=== PATIENT | female | born 1945 | race Caucasian/White ===

== ENCOUNTER → 2021-03-16 11:42 | Outpatient (CLI) | payer MEDICARE, BC, SELFPAY ==
--- NOTE | ~2021-03-16 | XR_ITS ---
XR chest 2V DATE: 03/16/2021 12:48 INDICATION: Chest pain TECHNIQUE: 2 views COMPARISON: 11/23/2016 PA chest FINDINGS: Heart size is within normal range. There is aortic ectasia and tortuosity. No hilar or medi astinal enlargement is evident. There is chronic mild elevation of the right leaf of the diaphragm. No pulmonary infiltrate or consol idation, pleural effusion or pulmonary vascular congestion or pneumothorax is detected. There is degenerative spurring of the thoracic spine. Diffuse osteopenia. Left glenohumeral joint replacement. IMPRESSION: No active disease or significant change since 12/01/2016 Interval left glenohumeral joint replacement since 12/01/2016 Reviewed, dictated and finalized at location B.
== END ==
PROVIDERS: PCP Family Medicine; Visit Provider Family Medicine
DX: R07.89 Other chest pain (principal)
CPT/HCPCS: 71046

== ENCOUNTER 2021-05-13 14:48 | Outpatient (CLI) | payer MEDICARE, BC, SELFPAY ==
--- NOTE | ~2021-05-13 | CT_ITS ---
EXAMINATION: CT abdomen pelvis w con INDICATION: Right lower quadrant pain TECHNIQUE: Computed tomographic images of the abdomen and pelvis were obtained after the administrati on of 100 cc of Omnipaque 350 intravenous contrast. The dose-length product (DLP) was 1398.66 mGy-cm. Automated exposure control and iterative reconstruction technique were employed. COMPARISON: 06/05/2007 FINDINGS: Minimal dependent atelectasis is present in the lung bases. The heart size is normal. The g allbladder is surgically absent. There is moderate enlargement of the common bile duct and central in trahepatic ducts which is likely due to post cholecystectomy state. There is an approximately 3.7 x 2 .1 cm area of subcapsular enhancement in liver segment II which has increased in size since the mary rison examination. This is associated with mildly dilated left hepatic and portal veins, likely refle cting a venous malformation. Punctate calcifications in an otherwise normal spleen likely represent h ealed granulomatous disease. The pancreas and adrenal glands are normal. Cysts of the kidneys measure up to 3.7 cm on the left. Small nonobstructing stones of the left kidney measure up to 3 mm. Small n onobstructing stones of the right kidney measure up to 2 mm. No stones are present in the ureters or bladder. There is calcified atherosclerosis of the aorta and many of the other arteries. No pathologi fanny enlarged abdominal or pelvic lymph nodes are identified. There is no free intraperitoneal gas o r evidence of bowel obstruction. The appendix is normal. Colonic diverticulosis is present without ev idence of diverticulitis. There is severe lumbar spondylosis. IMPRESSION: 1. No CT correlate for the patient's symptoms. 2. Left hepatic lobe lesion with imaging findings consistent with a venous malformation. Finding coul d be theoretically result in liver shunt physiology. 3. Bilateral nonobstructing nephrolithiasis. Reviewed, dictated and finalized at location A. HOUSE KEEPER IMPRESSION: 1. No CT correlate for the patient's symptoms. 2. Left hepatic lobe lesion with imaging findings consistent with a venous malf ormation. Finding could be theoretically result in liver shunt physiology. 3. Bilateral nonobstructing nephrolithiasis.
--- NOTE | ~2021-05-13 | XR_ITS ---
EXAMINATION: XR hip RT 2V w AP pelvis EXAM DATE: 05/13/2021 15:33 INDICATION: Pain throughout right hip, low back, symptoms 13 days. TECHNIQUE: Right hip frontal, 'frog leg' projections for interpretation. Frontal projection pelvis. There is no prior study for comparison. FINDINGS: There is moderate symmetric bilateral hip primary osteoarthritis. No evidence of avascular necrosis. There are no acute fractures or dislocations identified. There is no subcutaneous gas. Th e soft tissue is unremarkable. There are no radiopaque foreign bodies. Moderate L4-5 disc disease. IMPRESSION: Moderate bilateral hip osteoarthritis. Reviewed, dictated and finalized at location A. [employer]
[2021-05-13 15:44] LABS: Estimated Glomerular Filt Rate 44
[2021-05-13 17:04] LABS: Basophils Absolute Auto 0.1 K/mm3 (0.0-0.1); Basophils Percent Auto 1.1 % (0.2-1.2); Eosinophils Absolute Auto 0.3 K/mm3 (0-0.3); Eosinophils Percent Auto 3.9 % (0-4.4); Hematocrit 41.3 % (37.0-47.0); Immature Granulocyte Absolute 0.01 K/mm3 (0.00-0.031); Immature Granulocyte Percent A 0.1 % (0-0.5); Lymphocytes Absolute Auto 2.38 K/mm3 (0.9-3.2); Lymphocytes Percent Auto 29.7 % (18.3-44.2); Mean Corpuscular HGB Conc 33.9 g/dl (32-36); Mean Corpuscular Hemoglobin 32.6 pg (26-34); Mean Corpuscular Volume 96.3 fl (80-100); Mean Platelet Volume 10.3 fl (7.4-10.4); Monocytes Absolute Auto 0.7 K/mm3 (0.1-0.6); Neutrophils Absolute Auto 4.5 K/mm3 (1.3-6.7); Neutrophils Percent Auto 56.2 % (45.5-73.1); Platelet Count Result 247 k/mm3 (150-375); Red Blood Count 4.29 M/mm3 (4.2-5.4); Red Cell Distribution Width 13.1 % (11.5-14.5)
[2021-05-13 17:14] LABS: Alanine Aminotransferase 23 U/L (4-35); Albumin Level 4.2 g/dL (3.5-5.1); Alkaline Phosphatase 84 U/L (38-126); Anion Gap 12 mmol/L (8-16); Aspartate Amino Transferase 34 U/L (14-36); Bilirubin,Total 0.6 mg/dL (0.2-1.3); Blood Urea Nitrogen 25 mg/dL (7-17); Calcium 9.5 mg/dL (8.4-10.2); Carbon Dioxide 26 mmol/L (22-30); Chloride 93 mmol/L (98-107); Estimated Glomerular Filt Rate 48; Glucose 89 mg/dL (65-110); Potassium 3.5 mmol/L (3.4-5.0); Sodium 131 mmol/L (137-145)
== END 2021-05-13 14:49 | disposition home or self-care (01) ==
PROVIDERS: PCP Family Medicine; Visit Provider Physician Assistant Medical
DX: R10.31 Right lower quadrant pain (principal); N20.0 Calculus of kidney; I70.0 Atherosclerosis of aorta; M47.816 Spondylosis without myelopathy or radiculopathy, lumbar region; M16.11 Unilateral primary osteoarthritis, right hip
CPT/HCPCS: 73502; 74177; 80053; 85025; Q9967

== ENCOUNTER → 2021-08-31 15:30 | Outpatient (CLI) | payer MEDICARE, BC, SELFPAY ==
--- NOTE | ~2021-08-31 | XR_ITS ---
EXAMINATION: XR knee RT min 4V DATE: 08/31/2021 15:52 INDICATION: Right knee pain. TECHNIQUE: 4 views of right knee including standing views were obtained. COMPARISON: None. FINDINGS: There is lateral subluxation of patella. There is lateral subluxation of tibia with respect to distal femur. No fracture. There is severe osteoarthritis of medial and patellofemoral compartmen ts and moderate osteoarthritis of lateral compartment. No knee joint effusion. There are loose bodies in the knee joint. IMPRESSION: 1. Severe right knee osteoarthritis. 2. Right knee joint loose bodies. Reviewed, dictated and finalized at location A.
== END ==
PROVIDERS: PCP Family Medicine; Visit Provider Family Medicine
DX: M17.11 Unilateral primary osteoarthritis, right knee (principal); M23.41 Loose body in knee, right knee
CPT/HCPCS: 73564

== ENCOUNTER 2021-12-26 17:25 | Emergency (ER) | payer MEDICARE, BC, SELFPAY ==
--- NOTE | ~2021-12-26 | XR_ITS ---
EXAMINATION: XR chest 2V Exam Date/Time: 12/26/2021 18:00 CDT HISTORY: MID STERNAL CHEST PAIN Comparison: 03/16/2021. RESULT: Lines, tubes, and devices: Left shoulder arthroplasty. Cholecystectomy clips. Lungs and pleura: Clear. Cardiomediastinal silhouette: Stable. Other: No acute osseous or upper abdominal finding. IMPRESSION: No acute cardiopulmonary process. Reviewed, dictated and finalized at location K.
--- NOTE | ~2021-12-26 | CT_ITS ---
EXAMINATION: CT abdomen pelvis w con DATE: 12/26/2021 19:12 INDICATION: epigastric pain TECHNIQUE: Computed tomography (CT) of the abdomen and pelvis was performed with 100 mL Omnipaque-300 intravenous contrast. Automated exposure control and iterative reconstruction technique were employe d. The dose-length product was 1385.34 mGy-cm. COMPARISON: 05/13/2021. FINDINGS: Lower thorax: Reticular opacities and scarring in the right middle lobe. Small hiatal hernia. Liver: Left lobe hemangioma or venous malrotation. Intrahepatic biliary duct dilation, stable. Biliary/Gallbladder: Gallbladder is absent. Stable extrahepatic biliary duct dilatation. Pancreas: Mild atrophy. Spleen: Normal. Adrenals:No mass. Kidneys: Simple left renal cysts. Punctate bilateral nonobstructive calculi. GI tract: No small or large bowel dilation. Normal appendix. Diverticulosis without diverticulitis. Mesentery/Peritoneum: No ascites, mass, or free air. Retroperitoneum: No mass. Atherosclerotic abdominal aortic and/or arterial calcifications. Pelvis: Pelvic organs are within normal limits. Soft Tissues: Soft tissues and body wall unremarkable. Bones: No acute osseous finding. IMPRESSION: No acute abdominopelvic process. Reviewed, dictated and finalized at location K.
[2021-12-26 17:27] VITALS: BP 149/59; PULSE 69; RESP 16; TEMP 36.8; O2SAT 99
--- NOTE | 2021-12-26 17:29 | ECG_ITS ---
Measurements Intervals [place] Rate: 70 P: 41 WA: 193 QRS: -1 QRSD: 108 T: 15 QT: 396 QTc: 430 Interpretive Statements SINUS RHYTHM BORDERLINE ST ABNORMALITY- INF/LAT LEADS BASELINE ARTIFACT- I, II, III, AVR, AVL, AVF BORDERLINE ECG Electronically Signed On 12-26-2021 21:08:42 CDT by Donny Mccoy D.O.
[2021-12-26 17:40] VITALS: BP 137/57; O2SAT 97
[2021-12-26 17:45] VITALS: O2SAT 97
[2021-12-26 17:46] VITALS: BP 134/58; PULSE 68; RESP 19; O2SAT 97
[2021-12-26 18:04] LABS: Basophils Absolute Auto 0.1 K/mm3 (0.0-0.1); Basophils Percent Auto 0.8 % (0.2-1.2); Eosinophils Absolute Auto 0.3 K/mm3 (0-0.3); Eosinophils Percent Auto 3.6 % (0-4.4); Hematocrit 39.1 % (37.0-47.0); Hemoglobin 13.4 g/dL (12.0-15.0); Immature Granulocyte Absolute 0.01 K/mm3 (0.00-0.031); Immature Granulocyte Percent A 0.1 % (0-0.5); Lymphocytes Absolute Auto 2.11 K/mm3 (0.9-3.2); Lymphocytes Percent Auto 29.4 % (18.3-44.2); Mean Corpuscular HGB Conc 34.3 g/dl (32-36); Mean Corpuscular Hemoglobin 31.9 pg (26-34); Mean Corpuscular Volume 93.1 fl (80-100); Mean Platelet Volume 10.4 fl (7.4-10.4); Monocytes Absolute Auto 0.6 K/mm3 (0.1-0.6); Monocytes Percent Auto 7.9 % (2.6-8.5); Neutrophils Absolute Auto 4.2 K/mm3 (1.3-6.7); Neutrophils Percent Auto 58.2 % (45.5-73.1); Platelet Count Result 253 k/mm3 (150-375); Red Cell Distribution Width 13.1 % (11.5-14.5); White Blood Count 7.2 K/mm3 (4.5-10.0)
--- NOTE | 2021-12-26 18:04 | ED.CHESTPAIN ---
HPI - Chest Pain General Chief Complaint: Chest Pain Stated Complaint: angina attack Time Seen by Provider: 12/26/21 17:55 History of Present Illness HPI narrative: 76-year-old female presents the emergency room for evaluation of epigastric/substernal chest pain. States pain began approximately 1 hour prior to arrival and lasted for approximately 15 minutes. Patient states that she was sitting down in her rocking chair and the pain began. Was associated with some shortness of breath and nausea. Patient resolved on its own. Describes pain as a pressure and squeezing pain. Also states the pain returned on 2 other occasions but lasted for about 1 to 2 minutes. Reports having a cardiac history however has not had any stent placements bypass. Currently under the care of Dr. Buck. Symptoms resolved prior to arrival Related Data Home Medications Medication Instructions Recorded Confirmed atorvastatin 10 mg tablet 10 mg PO DAILY 11/12/19 12/01/21 carvedilol 6.25 mg tablet 9.375 mg PO Q12H 11/12/19 12/01/21 diltiazem HCl 180 mg 180 mg PO DAILY 11/12/19 12/01/21 tablet,extended release 24 hr valsartan 320 1 tablet PO DAILY 11/12/19 12/01/21 mg-hydrochlorothiazide 25 mg tablet ascorbic acid (vitamin C) 500 mg 500 mg PO DAILY 05/13/21 12/01/21 chewable tablet cholecalciferol (vitamin D3) 125 125 mcg PO DAILY 05/13/21 12/01/21 mcg (5,000 unit) capsule zinc acetate 25 mg (zinc) capsule 50 mg PO DAILY 05/13/21 12/01/21 (Galzin) Tatyana's wort 300 mg capsule 300 mg PO DAILY 08/31/21 12/01/21 cinnamon bark 500 mg capsule 500 mg PO DAILY 08/31/21 12/01/21 (Cinnamon) coenzyme Q10 75 mg capsule (Ultra 75 mg PO DAILY 08/31/21 12/01/21 CoQ10) lowxdecyvsb-C-Tuhoromufoyewiusxq tablet PO 08/31/21 12/01/21 500 mg-200 mg tablet ubidecarenone-omega 3-vit E 25 1 cap PO DAILY 08/31/21 12/01/21 mg-150 (90-60) mg-200 unit capsule (Co W-83-Qxtbinc E-Fish Oil) valerian root 100 mg capsule 100 mg PO DAILY 08/31/21 12/01/21 Allergies Allergy/AdvReac Type Severity Reaction Status Date / Time oxycodone Allergy Unknown Headache Verified 12/26/21 19:19 propoxycaine Allergy Unknown unknown Verified 12/26/21 19:19 propoxyphene Allergy Unknown N/V Verified 12/26/21 19:19 tramadol Allergy Unknown Unknown Verified 12/26/21 19:19 trazodone Allergy Unknown Unknown Verified 12/26/21 19:19 zolpidem Allergy Unknown Unknown Verified 12/26/21 19:19 Review of Systems Review of Systems: CONSTITUTIONAL: Denies fever, chills, or sweats. EYES: Denies visual changes, redness, or discharge. ENT: Denies rhinorrhea, congestion, sore throat, or otalgia. CARDIOVASCULAR: Reports chest pain, denies palpitations and edema. RESPIRATORY: Reports shortness of breath GASTROINTESTINAL: Denies abdominal pain, nausea, vomiting, or diarrhea. GENITOURINARY: Denies dysuria or hematuria. SKIN: Denies rash or itching. MUSCULOSKELETAL: Denies back pain, joint pain, or myalgia. NEUROLOGIC: Denies headache, numbness, dizziness, or weakness. PSYCHIATRIC: Denies anxiety or depression. [facility] Past Medical History Medical History Arm numbness left BMI greater than 40 CKD (chronic kidney disease) stage 3, GFR 30-59 ml/min Foot pain, right Mixed hyperlipidemia Need for vaccination Osteoarthritis, hand Right knee pain UTI (urinary tract infection) Family History Family History Mother Hypertension Family history of malignant neoplasm of uterus Family history of malignant neoplasm of breast in first degree relative Father Carcinoma of colon Malignant neoplasm of prostate Family history of diabetes mellitus in first degree relative Family history of coronary artery disease Social History Social History Smoking status: Never smoker Alcohol intake: former Substance use: never Substance use
[2021-12-26 18:11] LABS: INR 1.1; Partial Thromboplastin Time 24.9 SECONDS (22.3-36.8); Prothrombin Time 13.4 Seconds (11.1-14.7)
[2021-12-26 18:23] LABS: Troponin I < 0.012 ng/mL (0.000-0.034)
[2021-12-26 18:24] LABS: Alanine Aminotransferase 58 U/L (6-35); Albumin Level 4.1 g/dL (3.5-5.1); Alkaline Phosphatase 91 U/L (38-126); Anion Gap 7 mmol/L (8-16); Aspartate Amino Transferase 97 U/L (14-36); Bilirubin,Total 0.7 mg/dL (0.2-1.3); Blood Urea Nitrogen 26 mg/dL (7-17); Calcium 9.1 mg/dL (8.4-10.2); Carbon Dioxide 26 mmol/L (22-30); Chloride 97 mmol/L (98-107); Estimated CRCL calculation 52 ml/min; Estimated Glomerular Filt Rate 54; Glucose 89 mg/dL (65-110); Lipase 1667 U/L (23-300); Potassium 4.1 mmol/L (3.4-5.0); Sodium 130 mmol/L (137-145)
[2021-12-26 19:10] LABS: Appearance Urine Clear (Clear); Bilirubin Urine Negative (Negative); Color Urine Yellow (Yellow); Glucose Urine UA Negative (Negative); Ketones Urine Negative (Negative); Leukocyte Esterase Ur 3+ LEU/UL (Negative); Nitrate Urine Negative (Negative); Protein Urine Negative (Negative); Specific Grav Ur 1.015 (1.001-1.035); Urobilinogen Urine 0.2 mg/dL (<2.0); pH Urine 6.5 (5.0-9.0)
[2021-12-26 19:18] LABS: Mucus Urine Rare /lpf; Squamous Epithelial Cell Urine Rare /hpf (Few); Transitional Epi Cells Urine Rare /hpf (None Seen)
[2021-12-26 19:21] LABS: Add Urine Microscopic? YES; Blood Urine Trace-Intact (Negative)
[2021-12-26] MEDS: SODIUM CHLORIDE 0.9% IV 1,000 ML 999 ML IV CONT (19:34)
[2021-12-26 21:33] LABS: Troponin I < 0.012 ng/mL (0.000-0.034)
[2021-12-26 22:14] VITALS: BP 140/82; PULSE 72; RESP 16; O2SAT 98
== END 2021-12-26 22:17 | disposition home or self-care (01) ==
PROVIDERS: Emergency Medicine; Emergency Provider Nurse Practitioner Family; PCP Family Medicine
DX: K85.90 Acute pancreatitis without necrosis or infection, unspecified (principal); N18.30 Chronic kidney disease, stage 3 unspecified; E78.2 Mixed hyperlipidemia; M19.049 Primary osteoarthritis, unspecified hand; Z87.440 Personal history of urinary (tract) infections; R94.31 Abnormal electrocardiogram [ECG] [EKG]
CPT/HCPCS: 36415; 71046; 74177; 80053; 81001; 83690; 84484; 85025; 85610; 85730; 87086; 87088; 93005; 96360; 96361; 99284; J7030; Q9967

== ENCOUNTER 2022-01-20 09:30 | Outpatient (CLI) | payer MEDICARE, BC, SELFPAY ==
--- NOTE | 2022-01-20 11:00 | NEURO_ITS ---
Impression: # Complains of left hand and arm pain. # This is an abnormal study due to the presence of left Carpal Tunnel Syndrome. # Normal needle/EMG exam. # Clinical correlation recommended. Nerve Conduction Studies Anti Sensory Summary Table Stim Site NR Peak (ms) P-T Amp (?V) Site1 Site2 Delta-P (ms) Dist (cm) Mike (m/s) Left Median Anti Sensory (2-3nd Digit) Wrist 3.9 25.1 Wrist 2-3nd Digit 3.9 14.0 36 Wrist 4.0 15.5 Wrist 2-3nd Digit 3.9 14.0 36 Left Radial Anti Sensory (Base 1st Digit) Wrist 2.4 26.6 Wrist Base 1st Digit 2.4 0.0 Left Ulnar Anti Sensory (5th Digit) Wrist 2.7 31.6 Wrist 5th Digit 2.7 14.0 52 Motor Summary Table Stim Site NR Onset (ms) O-P Amp (mV) Site1 Site2 Delta-0 (ms) Dist (cm) Mike (m/s) Left Median Motor (Abd Poll Brev) Wrist 4.0 2.6 Elbow Wrist 3.6 21.0 58 Elbow 7.6 2.9 Left Ulnar Motor (Abd Dig Minimi) Wrist 2.9 5.1 A Elbow Wrist 4.0 23.0 58 A Elbow 6.9 5.4 B Elbow Wrist 3.0 17.0 57 B Elbow 5.9 5.7 F Wave Studies NR F-Lat (ms) L-R F-Lat (ms) Left Median (Mrkrs) (Abd Poll Brev) 27.67 Left Ulnar (Mrkrs) (Abd Dig Min) 27.19 EMG Side Muscle Nerve Root Ins Act Fibs Amp Dur Recrt Comment Left 1stDorInt Ulnar C8-T1 Nml Nml Nml Nml Nml Left Ext Indicis Radial (Post Int) C7-8 Nml Nml Nml Nml Nml Left Ext Digitorum Radial (Post Int) C7-8 Nml Nml Nml Nml Nml Left BrachioRad Radial C5-6 Nml Nml Nml Nml Nml Left PronatorTeres Median C6-7 Nml Nml Nml Nml Nml Left Abd Poll Brev Median C8-T1 Nml Nml Nml Nml Nml MTDD
== END 2022-01-20 09:31 | disposition home or self-care (01) ==
LOC: ANHNEURO 09:31
PROVIDERS: PCP Family Medicine; Visit Provider Family Medicine
DX: R20.0 Anesthesia of skin (principal); G56.02 Carpal tunnel syndrome, left upper limb
CPT/HCPCS: 95886; 95909

== ENCOUNTER → 2022-02-01 10:54 | Outpatient (CLI) | payer MEDICARE, BC, SELFPAY ==
--- NOTE | ~2022-02-01 | XR_ITS ---
XR cervical spine min 6V DATE: 02/01/2022 11:29 INDICATION: Neck pain TECHNIQUE: AP, lateral, bilateral oblique views, open-mouth view, swimmer's projection COMPARISON: None FINDINGS: There is reversal of cervical curvature which may be due to muscle spasm. C1 and C2 are normally aligned and the odontoid process is intact. There is mild anterolisthesis at C3-4-4 5. Mild degenerative disc disease C4-5. Moderately severe degenerative disc disease at C5-6 and C6-7. Uncovertebral joint spurring at C5-6 and C6-7 approaches prominently upon the C6 and C7 neural forami na bilaterally. No fracture or dislocation or locked facet or prevertebral soft tissue swelling is noted. A glenohumeral joint replacement is noted. IMPRESSION: Moderately severe degenerative disc disease and prominent uncovertebral joint spurring at C5-6 and C6-7 Reversal of cervical curvature which may be due to muscle spasm Reviewed, dictated and finalized at location B. IMPRESSION: Moderately severe degenerative disc disease and prominent uncoverte bral joint spurring at C5-6 and C6-7 Reversal of cervical curvature which may be due to muscle spasm
== END ==
PROVIDERS: PCP Family Medicine; Visit Provider Family Medicine
DX: M50.320 Other cervical disc degeneration, mid-cervical region, unspecified level (principal)
CPT/HCPCS: 72052

== ENCOUNTER 2022-02-15 00:53 | Day surgery (SDC) | payer MEDICARE, BC, SELFPAY ==
--- NOTE | 2022-02-12 11:27 | PC.NURSE ---
Report to the Outpatient Waiting Room, entrance under the green pavilion located off [facility], at time 1130 on date _02/15/22 . OR Time: _1330 . Time changes happen often and if your time is changed the preop area will call you the afternoon before. - You and your visitor will be asked to self-screen and do not enter if you have any COVID symptoms. - Only one visitor and NO children visitors are allowed at this time. - The patient visitor is requested to leave or wait in car when not with patient due to restrictions. - A mask is required within the hospital. Patients may have clear liquids (water, carbonated beverages, clear teas, apple juice) until 3 hours prior to surgery with a maximum of 20 ounces. - No food from midnight until time of surgery - Infants may have breast milk until 4 hours before surgery, infant formula 6 hours prior to surgery. - Children will be allowed to drink immediately following surgery. If applicable, please bring a bottle or sippy cup to assist with drinking. Juice, water, soda, and popsicles are readily available. For infants on formula, please bring formula the day of surgery. Pacifiers are allowed. Take the following medications with a SIP of water the morning of surgery: ___CARVEDILOL,DILTIAZEM Medications to discontinue per physician _ALL VITAMINS AND SUPPLEMENTS 3 DAYS PRE OP Date to take last dose___02/11/22 Please no make-up, nail syriac, hairspray, perfume, deodorant, or body powder the day of surgery. No jewelry (including any body piercings) or valuables the day of surgery, leave them at home. Please take a shower or bath the night before, or the morning of, surgery with an antibacterial soap. Wear comfortable, loose fitting clothing. Children are encouraged to wear pajamas. - Jewelry must be removed prior to entering the operating room. Rings and piercings that are not removed may be cut off. - The hospital will not accept responsibility for valuables. - Please leave all valuables, including medications, at home the day of surgery. If you are going home after surgery, a licensed delivery driver must drive you home. - NO public transportation without another adult. - We recommend that an adult stay with you for 24 hours following discharge. - We also recommend that you do not drive, make important decision, drink alcoholic beverages, or take any drugs that were not prescribed by your health care provider for at least 24 hours after your discharge time. For Pediatric surgeries, we recommend two adults accompany the child home (only one inside the building at this time). Follow any additional instructions given to you from your surgeon. If you or anyone in your household have experienced Covid symptoms in the past week, please notify your surgeon or the nurse liaison at the phone number below for possible testing. Telephone instructions given to __PATIENT and asked if any additional questions and then verbalized understanding. Patient advised to call surgeon office or pre surgery nurse liaison [phone] if any additional questions.
[2022-02-12 11:32] VITALS: BMI 42.2
[2022-02-15 11:30] VITALS: BP 153/62; PULSE 56; RESP 18; TEMP 36.8; O2SAT 98
[2022-02-15] MEDS: LACTATED RINGERS 1,000 ML 30 ML IV CONT (12:00)
[2022-02-15] MEDS: KETOROLAC 15 MG/ML VIAL (*BKC) IV PUSH (12:08)
[2022-02-15] MEDS: ACETAMINOPHEN 500 MG TABLET 1000 MG PO (12:18)
[2022-02-15 12:23] LABS: Sodium 139 mmol/L (137-145)
--- NOTE | 2022-02-15 12:43 | WPDANESEPPF ---
Anes - Initial Pre Proc Eval Procedure: Operation Date: 02/15/22 13:30 Proposed Procedures p Left Carpal Tunnel Release - Polo Tam MD Date/Time: 02/15/22 12:44 Surgeon: Polo Tam MD Pre Op Diagnosis: left carpal tunnel syndrome Patient Data Age: 76 Gender: F Height: 1.63 m Weight: 110.2 kg Last Vital Signs Temp 36.8 C 02/15/22 11:30 Pulse 56 L 02/15/22 11:30 Resp 18 02/15/22 11:30 BP 153/62 H 02/15/22 11:30 Pulse Ox 98 02/15/22 11:30 O2 Del Method Room Air 02/15/22 11:30 Allergies Allergy/AdvReac Type Severity Reaction Status Date / Time oxycodone Allergy Unknown Headache Verified 02/15/22 11:43 propoxycaine Allergy Unknown unknown Verified 02/15/22 11:43 propoxyphene Allergy Unknown N/V Verified 02/15/22 11:43 tramadol Allergy Unknown Unknown Verified 02/15/22 11:43 trazodone Allergy Unknown Unknown Verified 02/15/22 11:43 zolpidem Allergy Unknown Unknown Verified 02/15/22 11:43 Home Medications Medication Instructions Recorded Confirmed Type atorvastatin 10 mg tablet 10 mg PO DAILY 11/12/19 02/15/22 History carvedilol 6.25 mg tablet 9.375 mg PO Q12H 11/12/19 02/15/22 History diltiazem HCl 180 mg 180 mg PO DAILY 11/12/19 02/15/22 History tablet,extended release 24 hr valsartan 320 1 tablet PO DAILY 11/12/19 02/15/22 History mg-hydrochlorothiazide 25 mg tablet diphenoxylate-atropine 2.5 1 tablet PO TID PRN diarrhea #90 07/17/20 02/15/22 Rx mg-0.025 mg tablet (Lomotil) tabs sumatriptan succinate 25 mg tablet See Rx Instructions PO .COMPLEX 03/16/21 02/15/22 Rx #10 tabs ascorbic acid (vitamin C) 500 mg 500 mg PO DAILY 05/13/21 02/15/22 History chewable tablet cholecalciferol (vitamin D3) 125 125 mcg PO DAILY 05/13/21 02/15/22 History mcg (5,000 unit) capsule zinc acetate 25 mg (zinc) capsule 50 mg PO DAILY 05/13/21 02/15/22 History (Galzin) Tatyana's wort 300 mg capsule 300 mg PO DAILY 08/31/21 02/15/22 History cinnamon bark 500 mg capsule 500 mg PO DAILY 08/31/21 02/15/22 History (Cinnamon) coenzyme Q10 75 mg capsule (Ultra 75 mg PO DAILY 08/31/21 02/15/22 History CoQ10) dxhcubwzffc-O-Ukjzljlfvmjfiyvatz 1 tablet PO DAILY 08/31/21 02/15/22 History 500 mg-200 mg tablet ubidecarenone-omega 3-vit E 25 1 cap PO DAILY 08/31/21 02/15/22 History mg-150 (90-60) mg-200 unit capsule (Co L-02-Xrjczdn E-Fish Oil) valerian root 100 mg capsule 100 mg PO DAILY 08/31/21 02/15/22 History meclizine 12.5 mg tablet 12.5 mg PO BID PRN dizziness #40 10/15/21 02/15/22 Rx tabs diclofenac sodium 1 % topical gel 2 g topical QID #100 grams 01/16/22 02/15/22 Rx carboxymethylcellulose sodium 0.5 1 drp EACH EYE BID 02/10/22 02/15/22 History % eye drops (Refresh Tears) potassium citrate 10 mEq (1,080 10 meq PO TID 02/10/22 02/15/22 History mg) tablet,extended release aspirin-caffeine 500 mg-32.5 mg 1 tablet PO DAILY 02/12/22 02/15/22 History tablet (Neida Back and Body) diphenhydramine 25 1 tablet PO HS PRN Insomnia 02/12/22 02/15/22 History mg-acetaminophen 500 mg tablet (Tylenol PM Extra Strength) melatonin 5 mg tablet 5 mg PO HS PRN Insomnia 02/12/22 02/15/22 History turmeric 400 mg capsule 400 mg PO TID 02/12/22 02/15/22 History Laboratory Tests 02/15/22 11:55 Sodium 139 mmol/L mmol/L (137-145) Patient hx anesthesia problems: none Family hx anesthesia problems: none Results Review: All pre-operative results and documents have been reviewed as part of the pre-operative evaluation. [facility] Past Medical History Medical History (Updated 02/15/22 @ 12:45 by Stef Ruggiero DO) Arm numbness left Arm pain, right Asthma BMI greater than 40 Carpal tunnel syndrome on left CKD (chronic kidney disease) stage 3, GFR 30-59 ml/min Foot pain, right History of lung cancer Hypertension Lung cancer Mixed hyperlipidemia Multiple skin nodules Need for vaccination PAUL (obstructive sleep apnea) Osteoarthritis, h
--- NOTE | 2022-02-15 13:02 | WPDHPUPDATE1 ---
History and Physical Update Update Date/Time: 02/15/22 13:02 History and Physical has been reviewed, including an updated exam of the patient. There are NO changes in the patient's condition. Risks, benefits, and alternatives have been discussed and questions answered. Patient agrees to proceed with procedure.
[2022-02-15] MEDS: ceFAZolin 2 GM/D5W 50 ML 2 GM/50 ML BAG IVPB (13:46)
[2022-02-15 14:22] VITALS: BP 141/72; PULSE 60; RESP 18; O2SAT 98
[2022-02-15] MEDS: BUPIVACAINE/EPINEPHRINE 0.25% 10 ML VIAL 30 ML INFILTRATE (14:25)
[2022-02-15 14:45] VITALS: BP 167/88; PULSE 53; RESP 18; O2SAT 97
--- NOTE | 2022-02-15 14:47 | W.PM.PROC2 ---
Procedure Note - Detailed Date of Procedure 02/15/22 Pre-op Diagnosis left carpal tunnel syndrome Post-op Diagnosis Same Procedure Performed Left carpal tunnel release Surgeon Polo Tam MD Manufacturing Technician [employer] Montgomery Anesthesia MAC and Local Description of Procedure The patient was identified and proper side identified. After being taken to the operating room and transferred to the OR table, a nonsterile tourniquet was placed high on the left upper extremity, which was prepped and draped in the usual sterile fashion. After IV sedation was administered, the subcutaneous tissue in the area of the incision was infiltrated with several cc of 0.25% Marcaine and epinephrine solution. The extremity was exsanguinated and tourniquet inflated to 250 mmHg remaining up for approximately five minutes. A longitudinal incision was over the ulnar aspect of the transverse carpal ligament. Subcutaneous tissue was bluntly dissected down to the ligament, which was identified and then transected longitudinally in line with the incision releasing the contents of the carpal canal. The tourniquet was released. Hemostasis was carried out with bipolar electrocautery. The median nerve had appropriate blush with reperfusion. The wound was irrigated with sterile saline solution. Skin edges were reapproximated with four 0 nylon suture and a sterile dressing was applied. A well-padded volar wrist splint was fashioned with the wrist in a neutral position. Estimated Blood Loss -1.0 Tourniquet Time 5 Drains No Packing No Pathology None sent Complications No immediate complications Condition Stable Disposition PACU
[2022-02-15 15:10] VITALS: BP 145/81; PULSE 53; RESP 18
== END 2022-02-15 15:28 | disposition home or self-care (01) ==
PROVIDERS: Anesthesiology; PCP Family Medicine; Visit Provider Orthopaedic Surgery
PROC: (CPT 64721; principal; 2022-02-15 13:30)
DX: G56.02 Carpal tunnel syndrome, left upper limb (principal); I12.9 Hypertensive chronic kidney disease with stage 1 through stage 4 chronic kidney disease, or unspecified chronic kidney disease; N18.30 Chronic kidney disease, stage 3 unspecified; E78.2 Mixed hyperlipidemia; J45.909 Unspecified asthma, uncomplicated; G47.33 Obstructive sleep apnea (adult) (pediatric); E66.01 Morbid (severe) obesity due to excess calories; Z68.41 Body mass index [BMI] 40.0-44.9, adult
CPT/HCPCS: 64721; 36415; 84295; A9270; J0690; J1885; J2704; J3010; J7120

== ENCOUNTER → 2022-03-24 11:48 | Outpatient (CLI) | payer MEDICARE, BC, SELFPAY ==
--- NOTE | ~2022-03-24 | XR_ITS ---
EXAM: XR abdomen/kub 1V DATE: 03/24/2022 12:05 HISTORY: HX OF KIDNEY STONES NO COMPLAINTS TODAY . COMPARISON: 10/10/2018, CT 12/26/2021. FINDINGS: Clear lung bases. Right upper quadrant surgical clips Normal bowel gas pattern. No organom egaly. Pelvic phleboliths. Vascular calcifications. Large, ovoid calcified body in the left pelvis, n ot significantly changed. Punctate bilateral calculi, not significantly changed. Degenerative change in the lumbar spine. IMPRESSION: Bilateral nephrolithiasis. Reviewed, dictated and finalized at location K. IMPRESSION: Bilateral nephrolithiasis.
== END ==
PROVIDERS: PCP Family Medicine; Visit Provider Internal Medicine Nephrology
DX: I10 Essential (primary) hypertension (principal); I11.9 Hypertensive heart disease without heart failure; N18.31 Chronic kidney disease, stage 3a; E78.2 Mixed hyperlipidemia; N20.0 Calculus of kidney
CPT/HCPCS: 74018

== ENCOUNTER 2022-03-25 09:10 | Outpatient (CLI) | payer MEDICARE, BC, SELFPAY ==
--- NOTE | 2022-03-25 11:30 | NEURO_ITS ---
Impression: # Complains of pain in right upper extremity. # Normal nerve conduction study. # Normal needle/EMG exam. # Clinical correlation recommended. Nerve Conduction Studies Anti Sensory Summary Table Stim Site NR Peak (ms) P-T Amp (?V) Site1 Site2 Delta-P (ms) Dist (cm) Mike (m/s) Right Median Anti Sensory (2-3nd Digit) Wrist 3.3 19.1 Wrist 2-3nd Digit 3.3 14.0 42 Wrist 3.4 22.7 Wrist 2-3nd Digit 3.3 14.0 42 Right Radial Anti Sensory (Base 1st Digit) Wrist 2.5 19.6 Wrist Base 1st Digit 2.5 0.0 Right Ulnar Anti Sensory (5th Digit) Wrist 2.5 31.5 Wrist 5th Digit 2.5 14.0 56 Motor Summary Table Stim Site NR Onset (ms) O-P Amp (mV) Site1 Site2 Delta-0 (ms) Dist (cm) Mike (m/s) Right Median Motor (Abd Poll Brev) Wrist 3.1 2.6 Elbow Wrist 5.5 27.0 49 Elbow 8.6 1.8 Right Ulnar Motor (Abd Dig Minimi) Wrist 2.8 7.4 A Elbow Wrist 5.5 28.0 51 A Elbow 8.3 5.0 F Wave Studies NR F-Lat (ms) L-R F-Lat (ms) Right Median (Mrkrs) (Abd Poll Brev) 28.82 Right Ulnar (Mrkrs) (Abd Dig Min) 27.66 EMG Side Muscle Nerve Root Ins Act Fibs Amp Dur Recrt Comment Right 1stDorInt Ulnar C8-T1 Nml Nml Nml Nml Nml Right Ext Indicis Radial (Post Int) C7-8 Nml Nml Nml Nml Nml Right Ext Digitorum Radial (Post Int) C7-8 Nml Nml Nml Nml Nml Right BrachioRad Radial C5-6 Nml Nml Nml Nml Nml Right PronatorTeres Median C6-7 Nml Nml Nml Nml Nml Right Abd Poll Brev Median C8-T1 Nml Nml Nml Nml Nml Right ABD Dig Min Ulnar C8-T1 Nml Nml Nml Nml Nml Right Biceps Musculocut C5-6 Nml Nml Nml Nml Nml Right Triceps Radial C6-7-8 Nml Nml Nml Nml Nml Right Deltoid Axillary C5-6 Nml Nml Nml Nml Nml MTDD
== END 2022-03-25 09:11 | disposition home or self-care (01) ==
PROVIDERS: PCP Family Medicine; Visit Provider Family Medicine
DX: M79.601 Pain in right arm (principal)
CPT/HCPCS: 95886; 95909

== ENCOUNTER 2022-10-28 09:18 | Outpatient (CLI) | payer MEDICARE, BC, SELFPAY ==
--- NOTE | 2022-10-28 | ECG_ITS ---
Measurements Intervals Snyder Rate: 56 P: 68 TX: 199 QRS: 18 QRSD: 109 T: 31 QT: 419 QTc: 407 Interpretive Statements SINUS BRADYCARDIA BORDERLINE ST ABNORMALITY- ANTEROLAT/INF LEADS BASELINE WANDER- I, III, AVR, AVL, AVF BORDERLINE ECG COMPARED TO ECG 12/26/2021 18:01:19 [address] PRES[address] (T WAVE) DEVIATION NOW PRESENT Electronically Signed On 10-28-2022 10:51:31 CDT by Donny Mccoy D.O.
== END 2022-10-28 09:19 | disposition home or self-care (01) ==
PROVIDERS: PCP Family Medicine; Visit Provider Family Medicine
DX: I51.9 Heart disease, unspecified (principal); R00.1 Bradycardia, unspecified
CPT/HCPCS: 93005

== ENCOUNTER → 2023-03-10 13:18 | Outpatient (CLI) | payer MEDICARE, BC, SELFPAY ==
--- NOTE | ~2023-03-10 | XR_ITS ---
EXAMINATION: XR abdomen/kub 1V DATE: 03/10/2023 13:48 INDICATION: Chronic kidney disease, stage IIIa. TECHNIQUE: A supine view of the abdomen on 2 radiographs was obtained. COMPARISON: CT abdomen and pelvis 12/26/2021 FINDINGS: There are no dilated loops of bowel. There is a small volume of stool in the colon. Surgica l clips in the right upper quadrant are likely from cholecystectomy. There are phleboliths in the pel vis. IMPRESSION: 1. No visible urolithiasis. Reviewed, dictated and finalized at location E. IMPRESSION: 1. No visible urolithiasis.
== END ==
PROVIDERS: PCP Family Medicine; Visit Provider Internal Medicine Nephrology
DX: N18.31 Chronic kidney disease, stage 3a (principal)
CPT/HCPCS: 74018

== ENCOUNTER 2024-03-26 11:59 | Outpatient (CLI) | payer MEDICARE, BC, SELFPAY ==
--- NOTE | ~2024-03-26 | XR_ITS ---
Supine and upright views of the abdomen Clinical history: Renal stone COMPARISON: 03/10/2023 Findings: Bowel gas pattern is nonspecific. No evidence for obstruction or free air. Probable tiny ri ght renal stone. No definite left renal stone seen. Cholecystectomy clips noted. Degenerative change of the lumbar spine noted. Impression: Probable tiny right renal stone. Reviewed, dictated and finalized at location . Impression: Probable tiny right renal stone.
== END 2024-03-26 12:00 | disposition home or self-care (01) ==
PROVIDERS: PCP Family Medicine; Visit Provider Internal Medicine Nephrology
DX: N20.0 Calculus of kidney (principal)
CPT/HCPCS: 74018

== ENCOUNTER 2024-08-22 11:26 | Outpatient (CLI) | payer MEDICARE, BC, SELFPAY ==
--- NOTE | ~2024-08-22 | XR_ITS ---
Supine and upright views of the abdomen Clinical history: Renal stone COMPARISON: 03/26/2024 Findings: Bowel gas pattern is nonspecific. No evidence for obstruction or free air. Probable tiny ri ght renal stone. Osseous structures are intact. Impression: Probable tiny right renal stone, similar to prior exam. Reviewed, dictated and finalized at [facility]. Impression: Probable tiny right renal stone, similar to prior exam.
== END 2024-08-22 11:27 | disposition home or self-care (01) ==
LOC: MICIMG 11:28
PROVIDERS: PCP Family Medicine; Visit Provider Internal Medicine Nephrology
DX: N20.0 Calculus of kidney (principal); N18.30 Chronic kidney disease, stage 3 unspecified
CPT/HCPCS: 74018